=== PATIENT | female | born 1980 | race Caucasian/White ===

== ENCOUNTER → 2019-10-24 | Outpatient (CLI) | payer BC ==
--- NOTE | 2019-10-25 18:12 | SLEEP ---
DATE OF STUDY: 10/24/2019 SLEEP STUDY REFERRING PHYSICIAN: Erasmo Kowalski M.D. The patient is a 39-year-old who weighs 213 pounds with a BMI of 37. The patient's [place] score was 16. The patient underwent home sleep study performed by [facility]. Total recording time was 205 minutes. During the night study, the patient had 105 obstructive apneas, 1 central apnea, 33 mixed apneas, and 12 hypopneas. The patient's apnea-hypopnea index was 44 per hour. Nocturnal oximetry study revealed an average oxygen saturation of 91% with the lowest of 77%. 56 minutes were spent in oxygen saturation less than 90%. Mean heart rate 82 beats per minute. IMPRESSION: 1. Severe sleep apnea-hypopnea syndrome at an AHI of 44 per hour. 2. Nocturnal hypoxia secondary to obstructive sleep apnea. RECOMMENDATIONS: 1. The patient would benefit from treatment of sleep apnea with CPAP. This can be done in-lab versus home auto-titration study. 2. Once the patient is optimally treated with CPAP, then follow up in 4-6 weeks to assess compliance with CPAP and to document clinical improvement. 3. Weight loss is strongly advised. 4. Avoid PLANT ATTENDANT OR ASSISTANT OPERATOR depressants. 5. Cautioned regarding driving until symptoms of sleep apnea resolve with CPAP. ANNABELLE SIDDIQUI MD DR: EWA/sebastián JOB#: [id number] / [id number] ERASMO Pradhan MD
== END | disposition home or self-care (01) ==
LOC: RT 08:55
PROVIDERS: ATTEND Family Medicine
DX: G47.33 Obstructive sleep apnea (adult) (pediatric) (principal); G47.34 Idiopathic sleep related nonobstructive alveolar hypoventilation
CPT/HCPCS: G0399

== ENCOUNTER → 2019-11-08 | Outpatient (CLI) | payer BC ==
[~2019-11-08] MED LIST: ZOLPIDEM 5 MG TABLET. PO ONE
--- NOTE | 2019-11-09 11:46 | SLEEP ---
DATE OF STUDY: 11/08/2019 SLEEP STUDY REFERRING PHYSICIAN: Erasmo Kowalski MD The patient is a 39-year-old who weighs 213 pounds with a BMI of 38. The patient had severe KEVAN diagnosed by home sleep study. The patient was referred for in-lab CPAP titration study. During the night study, the patient spent 420 minutes in bed and slept for 359 minutes with a sleep efficiency of 86%. Sleep latency was 35 minutes with a REM latency of 76 minutes. Sleep architecture showed normal stage 1 sleep, slightly increased stage 2 sleep, normal slow wave and normal REM sleep. EKG monitoring revealed normal sinus rhythm. No sustained arrhythmias observed. PLMs were seen at index of 17 per hour, but only 2 per hour caused EEG arousals. The patient was started on CPAP at a pressure of 5 cm water and titrated up to 20 cm water. At the final pressure, the patient slept for 188 minutes. The patient's AHI was reduced to 2 per hour. The patient had supine as well as REM sleep. Oxygen saturation remained above 93%. The patient uses a full face mask a small size. IMPRESSION: 1. Severe sleep apnea diagnosed by home sleep study. 2. Mild periodic limb movements. This does not need to be treated unless the patient has symptoms of restless legs during the day. RECOMMENDATIONS: 1. CPAP at 20 cm water completely eliminated the patient's sleep apnea and should be used on a nightly basis. 2. Follow up in 4-6 weeks to assess compliance with CPAP and to document clinical improvement. 3. Weight loss is strongly advised. 4. Avoid MANAGER GREEN depressants. 5. Cautioned regarding driving until symptoms of sleep apnea resolve with the use of CPAP. ANNABELLE SIDDIQUI MD DR: EWA/sebastián JOB#: [id number] / [id number]
== END | disposition home or self-care (01) ==
LOC: RT 19:00
PROVIDERS: ATTEND Family Medicine
DX: G47.33 Obstructive sleep apnea (adult) (pediatric) (principal); G47.61 Periodic limb movement disorder
CPT/HCPCS: 95811